=== PATIENT | female | born 1945 | race Caucasian/White ===

== ENCOUNTER 2016-09-16 07:53 | Outpatient (CLI) | payer MEDICARE, OTHER ==
[2016-09-16 08:59] LABS: eGFR (African) > 60; eGFR (Non-African) > 60
== END 2016-09-16 07:54 ==
LOC: LAB 07:53
PROVIDERS: ATTEND Family Medicine
DX: I10 Essential (primary) hypertension (principal)
CPT/HCPCS: 36415; 80053; 80061

== ENCOUNTER 2016-09-17 07:59 | Outpatient (CLI) | payer MEDICARE, OTHER | END 2016-09-17 08:00 | LOC: LAB 07:59 | PROVIDERS: ATTEND Family Medicine | DX: R43.2 Parageusia (principal) | CPT/HCPCS: 36415; 84443; 84484 ==

== ENCOUNTER 2018-04-07 09:12 | Outpatient (CLI) | payer MEDICARE, OTHER ==
[2018-04-07 10:46] LABS: eGFR (African) > 60; eGFR (Non-African) > 60
[2018-04-07 10:50] LABS: MEAN CORPUSCULAR HEMOGLOBIN 31.4 pg (28.0-34.0); MEAN CORPUSCULAR VOLUME 93.3 fl (80.0-100.0)
== END 2018-04-07 09:16 ==
LOC: LAB 09:12
PROVIDERS: ATTEND Internal Medicine Cardiovascular Disease
DX: I48.0 Paroxysmal atrial fibrillation (principal); I10 Essential (primary) hypertension
CPT/HCPCS: 36415; 80053; 80061; 82306; 83036; 84443; 85027

== ENCOUNTER 2018-05-21 11:05 | Inpatient (IN) | payer MEDICARE, OTHER ==
[2018-05-21] MEDS ORDERED: IBUPROFEN 400 MG TABLET PO PRN (13:02)
[2018-05-21 15:33] VITALS: BMI 32.8
[2018-05-21] MEDS: ACETAMINOPHEN 500 MG TABLET PO PRN ×2 (16:13→22:18)
[2018-05-21] MEDS: METOPROLOL TARTRATE 50 MG TABLET PO SCH (21:13)
[2018-05-21] MEDS: ASPIRIN 325 MG TABLET PO SCH (21:13)
[2018-05-22 07:16] LABS: BASOPHILS % 0.3 (0.0-1.5); EOSINOPHILS % 3.3 % (0.0-6.8); MEAN CORPUSCULAR HEMOGLOBIN 30.8 pg (28.0-34.0); NEUTROPHILS # 4.7 # k/uL (1.4-7.7)
[2018-05-22] MEDS: ACETAMINOPHEN 500 MG TABLET PO PRN ×2 (07:23→16:30)
[2018-05-22] MEDS: ASPIRIN 325 MG TABLET PO SCH (07:23)
[2018-05-22] MEDS: LORATADINE 10 MG TABLET PO SCH (07:23)
[2018-05-22] MEDS: METOPROLOL TARTRATE 50 MG TABLET PO SCH ×2 (07:23→20:27)
[2018-05-22] MEDS: CHOLECALCIFEROL (VIT D3) 1,000 UNIT TABLET PO SCH (07:25)
[2018-05-22 07:46] LABS: eGFR (Non-African) > 60
[2018-05-22] MEDS ORDERED: ASPIRIN 325 MG TABLET PO SCH (09:00)
--- NOTE | 2018-05-22 16:44 | History and Physical Report ---
CHIEF COMPLAINT: Status post right total knee replacement. HISTORY OF PRESENT ILLNESS: This is a 72-year-old female who is actually in remarkably good health who presented to Dr. 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 Options were discussed with her and she decided to proceed with a right total knee replacement which was performed on May 17, 2018, at [facility]. She has not had any complications. She did have replacement of her patella also at the same time. She comes to our facility for ongoing therapy. She is on aspirin 325 mg p.o. b.i.d. for DVT prophylaxis. PAST MEDICAL HISTORY: 1. History of allergies. 2. Hypertension. PAST SURGICAL HISTORY: 1. History of a laparoscopic cholecystectomy. 2. Open hysterectomy. CURRENT MEDICATIONS: 1. Aspirin 325 mg p.o. b.i.d. since leaving leaving Dr. Rubin's office. 2. Loratadine 10 mg daily. 3. Metoprolol 50 mg p.o. b.i.d. ALLERGIES: She is allergic to no known medications. SOCIAL HISTORY: She is . She has quite a bit of family support here in town. Her son, Eldon, and daughter, Loretta, are both local and actually quite involved and supportive of their mom. FAMILY HISTORY: Both her parents lived to be in their 90s and were actually in fairly good condition up to that point. REVIEW OF SYSTEMS: She says she really has been doing fairly well. Her blood pressure is well controlled and her pain is pretty well controlled currently on the current dose of Tylenol. She really does not want to be on any opiates because she got sick and threw up when she had those at [facility]. PHYSICAL EXAMINATION: General: She is a very pleasant, alert, and oriented 72-year-old female who looks to be significantly younger. Vital Signs: Her vital signs have not been obtained yet. She just got here. HEENT: Head is normocephalic and atraumatic. Mucous membranes are moist. Dentition is in good repair. Neck: No carotid bruits. No thyroid masses. Lungs: Clear. Heart: Regular. Abdomen: Soft. She does have a scar from her hysterectomy, which is a midline infraumbilical incision. She has 4 scars which are barely visible from her laparoscopic cholecystectomy. Her abdomen is soft. No guarding or rebound. Pelvic Exam: Deferred. Right Knee: Shows a linear incision over the right anterior knee consistent with total knee replacement. It is secure with subcuticular sutures and Steri- Strips at the surface. It is not red. It is not draining. It is not dehisced at all. Otherwise, she has no significant pedal edema. ASSESSMENT: 1. Status post right total knee replacement. 2. Hypertension, under good control based on review of records from [facility]. We will continue to follow that here. 3. Allergies. Well treated with Claritin. PLAN: Again, she will take therapy, occupational therapy and physical therapy. In fact, occupational therapy is in there seeing her right now. [id number]
[2018-05-22] MEDS: CELECOXIB 100 MG CAPSULE PO SCH (20:26)
[2018-05-22] MEDS: ASPIRIN EC 325 MG TABLET.DR PO SCH (20:27)
[2018-05-23] MEDS: ACETAMINOPHEN 500 MG TABLET PO PRN ×4 (01:33→20:49)
[2018-05-23] MEDS: CELECOXIB 100 MG CAPSULE PO SCH (09:37)
[2018-05-23] MEDS: METOPROLOL TARTRATE 50 MG TABLET PO SCH ×2 (09:39→20:48)
[2018-05-23] MEDS: ASPIRIN EC 325 MG TABLET.DR PO SCH ×2 (09:40→20:49)
[2018-05-23] MEDS: LORATADINE 10 MG TABLET PO SCH (09:40)
[2018-05-23] MEDS: CHOLECALCIFEROL (VIT D3) 1,000 UNIT TABLET PO SCH (09:40)
[2018-05-24] MEDS: ACETAMINOPHEN 500 MG TABLET PO PRN ×4 (03:15→20:59)
[2018-05-24] MEDS: CHOLECALCIFEROL (VIT D3) 1,000 UNIT TABLET PO SCH (08:45)
[2018-05-24] MEDS: CELECOXIB 100 MG CAPSULE PO SCH (08:46)
[2018-05-24] MEDS: LORATADINE 10 MG TABLET PO SCH (08:46)
[2018-05-24] MEDS: METOPROLOL TARTRATE 50 MG TABLET PO SCH ×2 (08:46→20:20)
[2018-05-24] MEDS: ASPIRIN EC 325 MG TABLET.DR PO SCH ×2 (08:46→20:20)
[2018-05-25] MEDS: ACETAMINOPHEN 500 MG TABLET PO PRN (05:51)
[2018-05-25] MEDS: CHOLECALCIFEROL (VIT D3) 1,000 UNIT TABLET PO SCH (09:24)
[2018-05-25] MEDS: CELECOXIB 100 MG CAPSULE PO SCH (09:24)
[2018-05-25] MEDS: METOPROLOL TARTRATE 50 MG TABLET PO SCH ×2 (09:25→20:46)
[2018-05-25] MEDS: ASPIRIN EC 325 MG TABLET.DR PO SCH ×2 (09:25→20:46)
[2018-05-25] MEDS: LORATADINE 10 MG TABLET PO SCH (09:25)
[2018-05-25] MEDS ORDERED: HYDROcodone /APAP 5/325 1 EACH TABLET PO PRN (09:41)
[2018-05-25] MEDS ORDERED: ACETAMINOPHEN 500 MG TABLET PO PRN (09:42)
[2018-05-25] MEDS ORDERED: ACETAMINOPHEN 325 MG TABLET ONE (12:22)
[2018-05-25] MEDS: ACETAMINOPHEN 325 MG TABLET PO PRN ×2 (12:26→18:13)
[2018-05-26] MEDS: CELECOXIB 100 MG CAPSULE PO SCH (08:56)
[2018-05-26] MEDS: METOPROLOL TARTRATE 50 MG TABLET PO SCH ×2 (08:56→20:53)
[2018-05-26] MEDS: LORATADINE 10 MG TABLET PO SCH (08:56)
[2018-05-26] MEDS: ASPIRIN EC 325 MG TABLET.DR PO SCH ×2 (08:56→20:53)
[2018-05-26] MEDS: CHOLECALCIFEROL (VIT D3) 1,000 UNIT TABLET PO SCH (08:56)
[2018-05-26] MEDS: ACETAMINOPHEN 325 MG TABLET PO PRN ×2 (08:56→17:28)
--- NOTE | 2018-05-26 17:57 | Diagnostic Imaging Report ---
KELVIN SEAY [facility] [address] [facility].[address] [id number] Report Submission Date: May 26, 2018 11:26:25 AM CDT Patient Study Name: NENITA ARIAS Date: May 26, 2018 10:44:51 AM CDT Modality Type: DX Gender: F Description: PELVIS : 41 Institution: [facility] Physician: KELVIN SEAY Examination: Plain film right hip History: RT HIP PAIN X2 DAYS S/P ORIF RT KNEE X9 DAYS (Hx) Comparison exams: None provided Findings: 2 views of the right hip demonstrate normal cortical margins. No fracture no dislocation. No soft tissue abnormality. Impression: No acute appearing osseous abnormality. Electronically signed on May 26, 2018 11:26:25 AM CDT by: Liang MENDOZA
[2018-05-27] MEDS: ACETAMINOPHEN 325 MG TABLET PO PRN ×2 (06:23→18:16)
[2018-05-27] MEDS: CELECOXIB 100 MG CAPSULE PO SCH (08:50)
[2018-05-27] MEDS: LORATADINE 10 MG TABLET PO SCH (08:50)
[2018-05-27] MEDS: CHOLECALCIFEROL (VIT D3) 1,000 UNIT TABLET PO SCH (08:50)
[2018-05-27] MEDS: METOPROLOL TARTRATE 50 MG TABLET PO SCH ×2 (08:50→21:41)
[2018-05-27] MEDS: ASPIRIN EC 325 MG TABLET.DR PO SCH ×2 (08:50→21:41)
[2018-05-28] MEDS: ACETAMINOPHEN 325 MG TABLET PO PRN ×3 (01:00→17:36)
[2018-05-28] MEDS: ASPIRIN EC 325 MG TABLET.DR PO SCH ×2 (09:08→20:46)
[2018-05-28] MEDS: METOPROLOL TARTRATE 50 MG TABLET PO SCH ×2 (09:08→20:45)
[2018-05-28] MEDS: CHOLECALCIFEROL (VIT D3) 1,000 UNIT TABLET PO SCH (09:09)
[2018-05-28] MEDS: LORATADINE 10 MG TABLET PO SCH (09:09)
[2018-05-28] MEDS: CELECOXIB 100 MG CAPSULE PO SCH (09:09)
[2018-05-29] MEDS: ACETAMINOPHEN 325 MG TABLET PO PRN ×3 (06:10→19:00)
[2018-05-29] MEDS: CELECOXIB 100 MG CAPSULE PO SCH (10:01)
[2018-05-29] MEDS: LORATADINE 10 MG TABLET PO SCH (10:02)
[2018-05-29] MEDS: ASPIRIN EC 325 MG TABLET.DR PO SCH ×2 (10:03→21:31)
[2018-05-29] MEDS: CHOLECALCIFEROL (VIT D3) 1,000 UNIT TABLET PO SCH (10:03)
[2018-05-29] MEDS: METOPROLOL TARTRATE 50 MG TABLET PO SCH ×2 (10:03→21:31)
[2018-05-30] MEDS: ACETAMINOPHEN 325 MG TABLET PO PRN ×3 (04:52→17:42)
[2018-05-30] MEDS: CELECOXIB 100 MG CAPSULE PO SCH (07:42)
[2018-05-30] MEDS: CHOLECALCIFEROL (VIT D3) 1,000 UNIT TABLET PO SCH (09:23)
[2018-05-30] MEDS: ASPIRIN EC 325 MG TABLET.DR PO SCH ×2 (09:23→20:10)
[2018-05-30] MEDS: METOPROLOL TARTRATE 50 MG TABLET PO SCH ×2 (09:24→20:10)
[2018-05-30] MEDS: LORATADINE 10 MG TABLET PO SCH (09:24)
--- NOTE | 2018-05-30 14:07 | Inpatient Progress Note ---
Subjective - Required Recertification Statement I anticipate X number of days because-include discharge plan: 1 day - Review of Systems Events since last encounter: Patient seems to be doing well at this time. States that the use of the CPM is OK, not as painful to her hip as when she was doing 95 degrees. BM have been OK. Appetite has been stable. Not having much pain at this time. Doing PT and OT well. BP has been a little soft with systolic in the 80s at times. Patient is not symptomatic. General: Denies: Chills Cardiovascular: Denies: Chest Pain, Palpitations Gastrointestinal: Denies: Nausea, Vomiting, Abdominal Pain Objective - Exam Vitals and I&O: Vital Signs Temp 97.9 F 05/30/18 08:15 Pulse 98 H 05/30/18 09:00 Resp 18 05/30/18 09:00 BP 149/65 05/29/18 21:00 Pulse Ox 96 05/29/18 21:00 Intake & Output 05/29/18 05/30/18 05/30/18 23:59 11:59 23:59 Intake Total 900 840 720 Balance 900 840 720 Weight 83.915 kg Intake: Oral 900 840 720 Other: Voiding Method Toilet # Voids 2 3 1 General: Alert, Oriented to Person, Oriented to Place, Oriented to Time, Cooperative Neck: Supple Lungs: Clear to auscultation, Normal air movement, Speaks full Sentences. No: Wheezes, Rales, Rhonchi Cardiovascular: Regular rate, Normal S1, Normal S2, No murmurs Abdomen: Normal bowel sounds, Soft Extremities: Other (some swelling to the right knee.) Skin: Other (resolving echymosis tot he right thigh and knee area.) Neurological: Normal gait, Other (incision site is healing well) Psych/Mental Status: Mental status NL - Results Results: Laboratory Results WBC 7.20 K/ul (4.00-12.00) 05/22/18 06:55 RBC 3.04 M/ul (3.90-5.20) L 05/22/18 06:55 Hgb 9.3 g/dL (12.0-16.0) L 05/22/18 06:55 Hct 28.3 % (34.5-46.5) L 05/22/18 06:55 MCV 93.0 fl (80.0-100.0) 05/22/18 06:55 MCH 30.8 pg (28.0-34.0) 05/22/18 06:55 MCHC 33.1 g/dL (30.0-36.0) 05/22/18 06:55 RDW 13.1 % (11.3-14.3) 05/22/18 06:55 Plt Count 204 K/mm3 (130-400) 05/22/18 06:55 Neut % (Auto) 65.0 % (39.0-79.0) 05/22/18 06:55 Lymph % (Auto) 25.4 % (16.0-50.0) 05/22/18 06:55 Hendry % (Auto) 6.0 % (0.0-11.0) 05/22/18 06:55 Eos % (Auto) 3.3 % (0.0-6.8) 05/22/18 06:55 Baso % (Auto) 0.3 (0.0-1.5) 05/22/18 06:55 Neut # (Auto) 4.7 # k/uL (1.4-7.7) 05/22/18 06:55 Lymph # (Auto) 1.8 # k/uL (0.6-4.0) 05/22/18 06:55 Hendry # (Auto) 0.4 # k/uL (0.0-0.9) 05/22/18 06:55 Eos # (Auto) 0.2 # k/uL (0.0-0.6) 05/22/18 06:55 Baso # (Auto) 0.0 # k/uL (0.0-0.5) 05/22/18 06:55 Sodium 139 mmol/L (136-145) 05/22/18 06:55 Potassium 3.9 mmol/L (3.5-5.1) 05/22/18 06:55 Chloride 104 mmol/L (98-107) 05/22/18 06:55 Carbon Dioxide 27 mmol/L (22-30) 05/22/18 06:55 BUN 12 mg/dL (7-17) 05/22/18 06:55 Creatinine 0.80 mg/dL (0.52-1.04) 05/22/18 06:55 Estimated Creat Clear 96 10/15/18 06:55 Est GFR ( Amer) > 60 (60-) 05/22/18 06:55 Est GFR (Non-Af Amer) > 60 (60-) 05/22/18 06:55 Glucose 94 mg/dL (74-106) 05/22/18 06:55 Calcium 8.1 mg/dL (8.4-10.2) L 05/22/18 06:55 Total Bilirubin 0.6 mg/dL (0.2-1.3) 05/22/18 06:55 AST 22 U/L (15-46) 05/22/18 06:55 ALT 37 U/L (13-69) 05/22/18 06:55 Alkaline Phosphatase 51 U/L (38-126) 05/22/18 06:55 Total Protein 5.1 g/dL (6.3-8.2) L 05/22/18 06:55 Albumin 2.8 g/dL (3.5-5.0) L 05/22/18 06:55 Assessment/Plan - Assessment/Plan (1) Gait difficulty Status: Acute Current Visit: Yes Assessment: Patient doing well. Continue with present treatment (2) S/P total knee replacement Status: Acute Current Visit: Yes Assessment: stable with no signs of infection (3) Essential hypertension Status: Acute Current Visit: Yes Assessment: Will decrease metoprolol to 25mg BID because BP is down some.
[2018-05-30] MEDS ORDERED: METOPROLOL TARTRATE 25 MG TABLET ONE ×2 (14:25→19:57)
[2018-05-31] MEDS: ACETAMINOPHEN 325 MG TABLET PO PRN ×2 (00:46→06:30)
[2018-05-31] MEDS: CELECOXIB 100 MG CAPSULE PO SCH (07:43)
[2018-05-31] MEDS: METOPROLOL TARTRATE 50 MG TABLET PO SCH (08:50)
[2018-05-31] MEDS: ASPIRIN EC 325 MG TABLET.DR PO SCH (08:50)
[2018-05-31] MEDS: CHOLECALCIFEROL (VIT D3) 1,000 UNIT TABLET PO SCH (08:51)
[2018-05-31] MEDS: LORATADINE 10 MG TABLET PO SCH (08:51)
[2018-05-31 09:16] VITALS: BP 150/74
--- NOTE | 2018-06-05 07:38 | Discharge Summary ---
Discharge Summary - Discharge Sumary History of Present Illness: 72yo white female who had developed some end stage degenerative changes to her right knee. She underwent elective total knee and patellar replacement. Patient did not have any intraoperative or post operative complications. Patient was transferred to this institution further rehab services. Condition at Discharge: Stable Home Medications: Ambulatory Orders Medication Instructions Recorded Acetaminophen [Tylenol] 650 mg PO Q6H PRN #100 tablet 05/30/18 Aspirin EC [Ecotrin] 325 mg PO BID tablet. 05/30/18 Cholecalciferol [Vitamin D-3] 3,000 unit PO DAILY tablet 05/30/18 Metoprolol Tartrate [Lopressor] 50 mg PO BID tablet 05/30/18 Consultations this Visit: None Procedures this Visit: None Allergies/Adverse Reactions: Allergies Allergy/AdvReac Type Severity Reaction Status Date / Time No Known Drug Allergies Allergy Verified 05/26/18 20:50 Discharge Summary: Patient did well during her stay. She participated with PT and OT and at the time of discharge was ambulating and transferring better. Patient did not have any problems with her other chronic medical conditions. HTN remained stable. At the time of discharge it was felt that the patient will benefit from further PT and OT through home health. This was arranged. Patient was encouraged to continue with passive range of motion as ordered for one more week. Patient has a follow-up appointment with orthopedics. - Final Diagnosis (1) Gait difficulty Problems: improved (2) S/P total knee replacement Problems: stable (3) Essential hypertension Problems: Stable on home meds
== END 2018-05-31 11:45 | disposition home health service (06) | DRG 93 ==
LOC: SOUTH 11:05
PROVIDERS: ADMIT Family Medicine; ATTEND Family Medicine
DX: R26.89 Other abnormalities of gait and mobility (principal); Z96.651 Presence of right artificial knee joint; I10 Essential (primary) hypertension
CPT/HCPCS: 73502; 80053; 85025; 97110; 97112; 97116; 97530; 97535; A9270